=== PATIENT | female | born 1955 | race Caucasian/White ===

== ENCOUNTER → 2016-10-04 | Outpatient (CLI) | payer OTHER ==
--- NOTE | 2016-10-04 17:50 | CT ---
"CT Chest Unenhanced History: Current smoker, follow up nodules. Comparison: CT chest September 25, 2015. Technique: Axial unenhanced images were obtained through the chest. Coronal MIPs were performed. Dose reduction techniques were utilized. Findings: A 6-mm noncalcified subpleural left lower lobe nodule (series 3 image 105) is unchanged sin ce August 2015 when remeasured in the same manner. An irregular 6-cm subpleural superior segment rig ht lower lobe nodule (image 80) is also stable. Scattered granulomas are present. Mild centrilobular and paraseptal emphysema are stable. Scattered linear opacities suggesting scarring/atelectasis are u nchanged. There is mild peribronchial thickening. Heart size is normal. Mild atherosclerosis is prese nt in a normal caliber aorta. Mild degenerative change is present in the spine. Circumscribed hypodensities in the liver are too small to characterize, not significantly changed. Impression: 1. Stable pulmonary nodules, for which follow up unenhanced chest CT is recommended in one year per F le[employer]ner Society guidelines. 2. Mild emphysema. 3. Additional findings as above. A follow-up required test result has been communicated via the [employer] | Critical Result syst em on 10/04/2016 17:46, Message ID [id number]."
== END ==
LOC: CIMAGING 15:15
PROVIDERS: ATTEND Family Medicine
DX: R91.1 Solitary pulmonary nodule (principal); J98.4 Other disorders of lung; Z72.0 Tobacco use
CPT/HCPCS: 71250-PO